=== PATIENT | female | born 1985 | race Caucasian/White ===

== ENCOUNTER 2016-09-27 14:59 | Emergency (ER) | payer SELFPAY ==
[~2016-09-27] VITALS: Ht 160 cm; Wt 82.5 kg
[2016-09-27 17:50] VITALS: BP 126/82
== END 2016-09-27 17:50 | disposition home or self-care (01) ==
LOC: ED 14:59
DX: H10.212 Acute toxic conjunctivitis, left eye (principal)
CPT/HCPCS: J7040; V2632

== ENCOUNTER 2016-11-02 19:51 | Emergency (ER) | payer SELFPAY ==
[2016-11-02 21:30] VITALS: BP 114/73
== END 2016-11-02 21:30 | disposition home or self-care (01) ==
LOC: ED 19:51
DX: N39.0 Urinary tract infection, site not specified (principal); G43.909 Migraine, unspecified, not intractable, without status migrainosus; Z88.0 Allergy status to penicillin; Z88.1 Allergy status to other antibiotic agents

== ENCOUNTER 2019-08-09 12:36 | Emergency (ER) | payer OTHER ==
[~2019-08-09] VITALS: Ht 160 cm; Wt 91.6 kg
[2019-08-09 13:02] VITALS: Ht 160 cm; Wt 91.6 kg
[2019-08-09 14:09] LABS: microscopic required? YES; urine erythrocyte 3+ (NEGATIVE)
[2019-08-09 14:14] LABS: BASOPHIL % 0.5 % (0-2); PLATELET COUNT 343 x10^3mcL (130-400)
[2019-08-09 14:31] LABS: CALCIUM 8.8 mg/dL (8.5-10.1); CARBON DIOXIDE 23.3 mmol/L (21-32); CHLORIDE SERUM 101 mmol/L (98-107); CREATININE SERUM 0.8 mg/dL (0.6-1.0); GFR1 > 60 mL/min; GLUCOSE SERUM 91 mg/dL (74-106); POTASSIUM SERUM 3.5 mmol/L (3.5-5.1); SODIUM SERUM 136 mmol/L (136-145)
[2019-08-09 14:43] LABS: ALKALINE PHOSPHATASE 73 U/L (46-116); ALT/SGPT 81 U/L (14-59); AST/SGOT 43 U/L (15-37); BILIRUBIN TOTAL 0.41 mg/dL (0.20-1.00); TOTAL PROTEIN, SERUM 7.8 g/dL (6.4-8.2)
[2019-08-09 15:35] VITALS: BP 115/69
== END 2019-08-09 15:35 | disposition home or self-care (01) ==
LOC: ED 12:36
PROVIDERS: Emergency Medicine
DX: M54.5 Low back pain (principal); R31.9 Hematuria, unspecified; G43.909 Migraine, unspecified, not intractable, without status migrainosus; K21.9 Gastro-esophageal reflux disease without esophagitis; Z90.49 Acquired absence of other specified parts of digestive tract; Z88.0 Allergy status to penicillin; Z88.1 Allergy status to other antibiotic agents; Z98.890 Other specified postprocedural states
CPT/HCPCS: 36415; J1885; J3010